=== PATIENT | male | born 1960 | race Caucasian/White ===

== ENCOUNTER 2019-01-20 14:49 | Emergency (ER) | payer OTHER ==
[~2019-01-20] VITALS: Ht 182.9 cm; Wt 88.5 kg
[~2019-01-20 14:49] MED LIST: ASPIRIN EC81 M1 PO; EFFEXOR XR37.5 MG PO; INDOMETHACIN SR75 MG PO; LISINOPRIL40 MG PO; PRAVASTATIN SOD10 MG PO
[2019-01-20] MEDS ORDERED: FLOMAX0.4 MG PO (15:00)
[2019-01-20] MEDS ORDERED: FLONASE 0.05%50 MCG NASAL (15:00)
[2019-01-20] MEDS ORDERED: POTASSIUM20 PO (15:01)
[2019-01-20] MEDS ORDERED: NASCOBAL1 EACH PO (15:01)
[2019-01-20 15:16] LABS: ABSOLUTE BASOPHILS 0.1 thou/uL (0.0-0.2); ABSOLUTE EOSINOPHILS 0.6 thou/uL (0.0-0.7); ABSOLUTE LYMPHOCYTES 1.6 thou/uL (0.8-5.3); ABSOLUTE MONOCYTES 0.6 thou/uL (0.0-1.2); ABSOLUTE NEUTROPHILS 3.8 thou/uL (1.6-8.1); BASOPHILS 1.1 %; EOSINOPHILS 8.8 %; HEMOGLOBIN 14.3 gm/dL (14.0-18.0); LYMPHOCYTES 23.6 %; MCH 31.2 pg (26.0-34.0); MONOCYTES 9.4 %; MPV 9.7 fl. (7.2-11.1); NUCLEATED RBCS 0 /100WBC; PLATELET COUNT* 205 thou/uL (150-400); POLYS 57.1 %; RBC 4.57 mil/uL (4.50-6.00); WBC 6.6 thou/uL (4.0-11.0)
[2019-01-20 15:24] LABS: CALCIUM 8.9 mg/dL (8.5-10.1); CREATININE 0.9 mg/dL (0.6-1.3); POTASSIUM 3.8 mmol/L (3.5-5.1)
[2019-01-20 15:29] LABS: ALBUMIN 3.7 g/dL (3.4-5.0); TOTAL BILIRUBIN 0.3 mg/dL (<0.1-1.0); TOTAL PROTEIN 6.9 g/dL (6.4-8.2)
[2019-01-20 16:38] LABS: ESR (SEDRATE) 5 mm/hr (0-20)
[2019-01-20] MEDS ORDERED: PREDNISONE 20 M20 M1 PO (16:54)
[2019-01-20 18:38] VITALS: BP 126/93
== END 2019-01-20 18:39 | disposition home or self-care (01) ==
LOC: M.ERS 14:49
PROVIDERS: Nurse Practitioner Family
DX: R51 Headache (principal); I10 Essential (primary) hypertension; E78.00 Pure hypercholesterolemia, unspecified

== ENCOUNTER 2020-10-01 19:52 | Emergency (ER) | payer OTHER ==
[~2020-10-01] VITALS: Ht 182.9 cm; Wt 93.0 kg
[~2020-10-01 19:52] MED LIST changes: +FLOMAX0.4 MG PO; +FLONASE 0.05%50 MCG NASAL; +NASCOBAL1 EACH PO; +POTASSIUM20 PO; +PREDNISONE 20 M20 M1 PO
[2020-10-01] MEDS ORDERED: prednisone PO (23:01)
[2020-10-01 23:07] VITALS: BP 123/65
== END 2020-10-01 23:08 | disposition home or self-care (01) ==
LOC: M.ERS 19:52
DX: G44.009 Cluster headache syndrome, unspecified, not intractable (principal); Z20.822 Contact with and (suspected) exposure to COVID-19; I10 Essential (primary) hypertension; E78.00 Pure hypercholesterolemia, unspecified

== ENCOUNTER → 2021-07-25 | Outpatient (CLI) | payer OTHER ==
[~2021-07-25] MED LIST changes: +prednisone PO
[2021-07-25 07:56] LABS: CREATININE 0.8 mg/dL (0.6-1.3); POTASSIUM 4.2 mmol/L (3.5-5.1)
== END ==
LOC: M.LAB 07-17 10:01 → M.MRI 08:30
PROVIDERS: ATTEND Psychiatry & Neurology Neuromuscular Medicine
DX: G44.001 Cluster headache syndrome, unspecified, intractable (principal)